=== PATIENT | female | born 1945 | race Native Hawaiian/Other Pacific Islander ===

== ENCOUNTER 2022-02-11 13:29 | Emergency (ER) | payer OTHER ==
[~2022-02-11] VITALS: Ht 157.5 cm; Wt 59.0 kg
[2022-02-11 14:36] LABS: PLATELET COUNT 254 K/uL (152-353)
[2022-02-11 14:49] LABS: PARTIAL THROMBOPLASTIN TIME 24.2 SECONDS (24.5-33.6)
[2022-02-11 20:50] VITALS: BP 209/80; TEMP 98.1
== END 2022-02-11 20:50 | disposition short-term general hospital (02) ==
LOC: ED 13:29 → EDBD 13:29 → ED 20:50
PROVIDERS: Family Medicine
DX: I61.8 Other nontraumatic intracerebral hemorrhage (principal); F17.210 Nicotine dependence, cigarettes, uncomplicated
CPT/HCPCS: 80053; 81002; 82150; 82550; 83690; 84484; 85027; 85610; 85730; 93005; 96360; 99284

== ENCOUNTER 2022-07-14 12:07 | Outpatient (CLI) | payer OTHER | END 2022-07-14 22:54 | disposition home or self-care (01) | LOC: US 12:07 | PROVIDERS: ATTEND Internal Medicine | DX: L03.116 Cellulitis of left lower limb (principal); L03.115 Cellulitis of right lower limb ==